=== PATIENT | male | born 1965 | race Two or more races ===

== ENCOUNTER 2017-08-30 08:19 | Day surgery (SDC) | payer BC ==
[2017-08-28 13:09] VITALS: BMI 32.5
[~2017-08-30 08:19] MED LIST: DEXAMETHASONE SOD PHOSPHATE 10 MG/ML 1 ML VIAL IV ONE; HEPARIN SODIUM,PORCINE 5,000 UNIT/ML 1 ML VIAL SQ ONE; HYDROmorphone 0.5 MG/0.5 ML SYRINGE IVP PRN; LACTATED RINGERS 1,000 ML IV SCH; ONDANSETRON 4 MG/2 ML VIAL IVP ONE; Pre Op ABX Message 1 EACH MISC MISCELLANE ONE
[2017-08-30 08:32] VITALS: RESP 16; TEMP 98.1
[2017-08-30] MEDS ORDERED: LIDOCAINE 1% 20 ML VIAL (10MG/ML) FOR IV START INTRADERMA ONE (08:40)
--- NOTE | 2017-08-30 09:46 | P.GSHP ---
History of Present Illness H&P Date: 08/30/17 Chief Complaint: Scalp cyst Is a 52-year-old male who presents today for excision of a 4 cm scalp cyst. Patient states his emesis for several years. He thinks he may have had a trauma were he has had a trailer. Past Medical History Past Medical History: Hyperlipidemia, Hypertension History of Any Multi-Drug Resistant Organisms: None Reported Additional Past Surgical History / Comment(s): Bilateral carpal tunnel on wrists and bilateral catartacts. Additional Past Anesthesia/Blood Transfusion Reaction / Comment(s): "Can be obnoxious when coming out of anesthesia." Past Psychological History: No Psychological Hx Reported Smoking Status: Former smoker Past Alcohol Use History: Occasional Additional Past Alcohol Use History / Comment(s): Smoked many yrs ago as a teenager. Past Drug Use History: None Reported - Past Family History Mother Family Medical History: No Reported History Medications and Allergies Home Medications Medication Instructions Recorded Confirmed Type Aspirin [Adult Low Dose Aspirin EC] 81 mg PO DAILY 08/28/17 08/30/17 History Calcium-Viatmin D (Unknown Dose) 1 tab PO DAILY 08/28/17 08/30/17 History Fish Oil (Unkown Dose) 1 cap PO DAILY 08/28/17 08/30/17 History Glucosamine 1 tab PO DAILY 08/28/17 08/30/17 History Lisinopril [Zestril] 20 mg PO HS 08/28/17 08/30/17 History Multivitamins, Thera [Multivitamin 1 tab PO DAILY 08/28/17 08/30/17 History (formulary)] Simvastatin 40 mg PO HS 08/28/17 08/30/17 History Vitamin E (Unknown Dose) 1 cap PO DAILY 08/28/17 08/30/17 History Allergies Allergy/AdvReac Type Severity Reaction Status Date / Time No Known Allergies Allergy Verified 08/28/17 12:53 Surgical - Exam Vital Signs Temp Pulse Resp BP Pulse Ox 98.1 F 80 16 172/92 97 08/30/17 08:32 08/30/17 08:32 08/30/17 08:32 08/30/17 08:32 08/30/17 08:32 - General well developed, no distress - Eyes PERRL - ENT 4 cm scalp cyst. The cyst is firm and slightly mobile normal pinna - Neck no masses Assessment and Plan Assessment: Scalp cyst. We'll perform excision.
[2017-08-30] MEDS ORDERED: BUPIVACAINE (PF) 0.25% 30 ML VIAL SQ ONE ×3 (09:50→09:57)
[2017-08-30] MEDS ORDERED: PROPOFOL 10 MG/ML 20 ML VIAL IV ONE (09:57)
[2017-08-30] MEDS ORDERED: MIDAZOLAM 2 MG/2 ML VIAL ONE (09:57)
[2017-08-30] MEDS ORDERED: KETAMINE 10 MG/ML 20 ML VIAL ONE (09:57)
[2017-08-30] MEDS ORDERED: fentaNYL (PF) 50 MCG/ML 2 ML AMP ONE (09:57)
[2017-08-30] MEDS ORDERED: SODIUM CHLORIDE 0.9% 50 ML with ceFAZolin 2,000 MG IV ONE ×2 (10:05)
--- NOTE | 2017-08-30 10:37 | P.OP ---
Date of Procedure: 08/30/17 Preoperative Diagnosis: Scalp cyst Postoperative Diagnosis: Scalp lipoma Procedure(s) Performed: Excision of scalp lipoma Anesthesia: MAC Surgeon: Chris Pan Estimated Blood Loss (ml): 5 Pathology: other (lipoma) Condition: stable Description of Procedure: The patient's placed on the endoscopy table in the lateral position. He received IV sedation. His scalp was prepped and draped usual sterile fashion. The patient had a 4 cm mass located on his anterior superior portion of the scalp. Skin was anesthetized 1% local Xylocaine. Then the skin incision was made. The scalp cyst was dissected appeared to be a lipoma. The lipoma measured approximately 4 x 2 cm. Using electrocautery the lipoma was excised. The wound was profusely hemostasis. Several small bleeding points were O coagulated. The skin was then closed with 1 layer using 3-0 Monocryl suture. Dermabond was applied. Patient top she will was sent to recovery in stable condition.
[2017-08-30 12:09] VITALS: BP 126/78; PULSE 72
== END 2017-08-30 11:48 | disposition home or self-care (01) ==
LOC: OR 08:19
PROVIDERS: ATTEND Surgery
DX: D17.0 Benign lipomatous neoplasm of skin and subcutaneous tissue of head, face and neck (principal); E78.5 Hyperlipidemia, unspecified; I10 Essential (primary) hypertension; G56.03 Carpal tunnel syndrome, bilateral upper limbs; H26.9 Unspecified cataract; Z87.891 Personal history of nicotine dependence; Z79.82 Long term (current) use of aspirin; Z79.899 Other long term (current) drug therapy
CPT/HCPCS: 88304; 11424; J2250; J1644; J1100; J2405; J3010; J0690; J2704